=== PATIENT | female | born 1990 | race African-American/Black ===

== ENCOUNTER 2019-08-15 19:07 | Emergency (ER) | payer SELFPAY ==
[2019-08-15 19:32] VITALS: BP 110/69; PULSE 82; RESP 19; TEMP 36.6; O2SAT 100
--- NOTE | 2019-08-15 21:04 | PC.NURSE ---
Called at this time in waiting room, no answer
--- NOTE | 2019-08-15 21:10 | PC.NURSE ---
PATIENT CALLED AT THIS TIME, NO ANSWER .
== END 2019-08-15 21:10 | disposition left against medical advice (07) ==
LOC: ANHED 21:12
DX: Z53.21 Procedure and treatment not carried out due to patient leaving prior to being seen by health care provider (principal)
CPT/HCPCS: 99199

== ENCOUNTER 2021-11-04 10:17 | Emergency (ER) | payer OTHER, SELFPAY ==
[2021-11-04 10:28] VITALS: BP 108/62; PULSE 93; RESP 16; TEMP 36.5; O2SAT 99
--- NOTE | 2021-11-04 10:40 | ED.URI ---
HPI - URI/Sore Throat General Chief Complaint: Upper Respiratory Infection Stated Complaint: cough/congestion Time Seen by Provider: 11/04/21 10:41 Source: patient, family, RN notes reviewed and old records reviewed Mode of arrival: ambulatory Limitations: no limitations History of Present Illness HPI Narrative: 31-year-old female presents to the [facility] with complaints of cough, congestion, body aches over the past 2 to 3 days. Has not taken anything for symptoms states that she just sleeps too much. Onset (ago): day(s) (2-3 ) Related Data Allergies Allergy/AdvReac Type Severity Reaction Status Date / Time No Known Allergies Allergy Verified 11/04/21 11:13 Review of Systems Review of Systems: All systems reviewed & are unremarkable except as noted in HPI and below Constitutional: Constitutional: Reports as per HPI, Denies chills, Reports fatigue, Denies fever(s) and Denies headache(s) Eyes: Eyes: Reports no additional eye complaints ENT: Reports as per HPI, Denies vertigo, Denies dizziness, Denies headache(s), Denies nasal congestion and Denies sore throat Cardiovascular: Cardiovascular: Reports no additional cardiovascular complaints, Denies chest pain, Denies syncope, Denies rapid heart rate and Denies dyspnea Respiratory: Respiratory: Reports as per HPI, Reports cough, Denies dyspnea and Denies wheezing Gastrointestinal: Gastrointestinal: Reports no additional gastrointestinal complaints, Denies abdominal pain, Denies diarrhea, Denies nausea and Denies vomiting Musculoskeletal: Musculoskeletal: Reports no additional musculoskeletal complaints and Denies numbness Integumentary/Breasts: Skin/Breast: Reports system reviewed and no additional complaints, except as docu Neurologic: Reports system reviewed and no additional complaints, except as documented, Denies vertigo, Denies dizziness, Denies syncope, Denies headache(s), Denies focal weakness and Denies numbness Psychiatric: Psychiatric: Reports no additional psychiatric complaints Allergic/Immunologic: Allergic/Immunologic: Reports no additional allergic/immunologic complaints and Denies wheezing PMFSH Past Medical History Medical History (Updated 11/04/21 @ 19:00 by Katheryn Salazar APRN) No significant medical problems Surgical History Surgical History No history of previous surgery Social History Social History Gender identity (if verbalized by the patient): Female Comments At the time of my signature, I reviewed and agree with the nursing past medical, surgical, social, and family history. There is no relevant family history pertinent to the patient complaint. Exam Const: General: cooperative, no acute distress, well developed, alert and ill appearing acutely (mild) Nutritional Appearance: well nourished Orientation/consciousness: patient oriented x3 Limitations: no limitations HENMT: Head: normal to inspection Ears: external ears normal, TM's normal bilaterally and EAC's normal General nose exam: Normal external nose present and Normal nares present Mouth: Yes Normal oral and palatal mucosa present Throat: posterior oropharynx normal and uvula midline Eyes: Conjunctivae: conjunctivae normal Pupils: Equal, round and reactive pupils present Neck: Neck: normal visual inspection, no lymphadenopathy and no meningeal signs Chest: Chest palpation & inspection: normal inspection of the chest Resp: Effort & Inspection: normal respiratory effort and no use of accessory muscles Auscultation: clear to auscultation bilaterally, no crackles, no rales, no rhonchi and no wheezes Cardio: Rate: regular rate Rhythm: regular rhythm Skin: General skin exam: normal color Rashes: no rashes Wounds: no wounds Neuro: General: patient oriented x3, moves all extremities, no meningeal signs and no focal motor deficits Cranial nerves: Yes Equal, round and reactive pupils present Speech: normal speech
[2021-11-04 21:31] LABS: SARS-CoV-2 RNA PCR Negative
== END 2021-11-04 11:24 | disposition home or self-care (01) ==
PROVIDERS: Emergency Provider Nurse Practitioner
DX: J40 Bronchitis, not specified as acute or chronic (principal); Z20.822 Contact with and (suspected) exposure to COVID-19
CPT/HCPCS: 87426; 87804; 99213; C9803; G0463; U0003; U0005

== ENCOUNTER 2021-12-15 14:37 | Emergency (ER) | payer OTHER, SELFPAY ==
[2021-12-15 14:50] VITALS: BP 116/71; PULSE 102; RESP 16; TEMP 36.6; O2SAT 100
--- NOTE | 2021-12-15 15:18 | ED.GENADULT ---
HPI - General Adult General Chief complaint: Head Injury Stated complaint: injury Time Seen by Provider: 12/15/21 15:21 Source: patient Mode of arrival: ambulatory Limitations: no limitations History of Present Illness HPI narrative: 31-year-old female presented for complaint of pain to right catholic after injury 2 days ago. She states while at work she struck her head on glass pane. Resulted in 2 scratches at the catholic, and endorses swelling. She denies loss of consciousness. Endorses since then intermittent dizziness/lightheadedness and head pain rating 10 out of 10. She denies associated photophobia, nausea, vomiting, vision changes. She has not taken anything for pain. Related Data Allergies Allergy/AdvReac Type Severity Reaction Status Date / Time No Known Allergies Allergy Verified 12/15/21 15:22 Review of Systems Review of Systems: CONSTITUTIONAL: Denies body aches, fever, chills, or sweats. EYES: Denies visual changes, redness, or discharge. ENT: Denies rhinorrhea, congestion, sore throat, or otalgia. CARDIOVASCULAR: Denies chest pain, palpitations, or edema. RESPIRATORY: Denies cough or dyspnea. GASTROINTESTINAL: Denies abdominal pain, nausea, vomiting, or diarrhea. GENITOURINARY: Denies dysuria or hematuria. SKIN: Denies rash, itching, or wounds. MUSCULOSKELETAL: Denies back pain, joint pain, or myalgia. NEUROLOGIC: Denies numbness, tingling, or weakness. All systems reviewed & are unremarkable except as noted in HPI and below PMFSH Past Medical History Medical History No significant medical problems Surgical History Surgical History No history of previous surgery Social History Social History Gender identity (if verbalized by the patient): Female Comments At time of signature, I have reviewed and agree with nursing past medical, surgical, social and family history unless otherwise noted. Please see nursing chart for further information. There is no relevant family history pertinent to the presenting complaint Exam Narrative: GENERAL: Well-appearing HEAD: Normocephalic, right catholic with 2 scabbed abrasions approx 3mm each, minimal swelling, tender with palpation EYES: EOMI. PERRLA No redness or drainage. Conjunctivae normal. ENT: Mucous membranes pink and moist. No rhinorrhea. TMs normal bilaterally. CHEST: Clear to auscultation. HEART: Regular rate and rhythm. SKIN: Warm, dry, no rash. NEURO: No focal deficits. Alert and oriented x3. Gait steady. PSYCH: Normal affect. Course Course Emergency Course: Patient is aware of diagnosis, understands and agrees to treatment plan. Anticipatory guidance given. Patient agrees to follow-up as directed and is aware of reasons to seek care at the emergency department. Portions of this record may have been created with voice recognition software Level of Care: Express Care Visit Vital Signs Vital signs: Vital Signs Temperature 97.9 F 12/15/21 14:50 Pulse Rate 102 H 12/15/21 14:50 Respiratory Rate 16 12/15/21 14:50 Blood Pressure 116/71 12/15/21 14:50 Pulse Oximetry 100 12/15/21 14:50 Oxygen Delivery Room Air 12/15/21 14:50 Temperature 97.9 F 12/15/21 14:50 Pulse Rate 102 H 12/15/21 14:50 Respiratory Rate 16 12/15/21 14:50 Blood Pressure 116/71 12/15/21 14:50 Pulse Oximetry 100 12/15/21 14:50 Oxygen Delivery Room Air 12/15/21 14:50 Medical Decision Making MDM Narrative Medical decision making narrative: Minimal swelling and small abrasion to right catholic. Advised supportive measures and signs/symptoms to go to the ER. Pt is appropriate for outpt treatment and f/u. Differential Diagnosis Differential Diagnosis: headache, head injury, abrasion, laceration Vital Signs Vital Signs: Vital Signs Temperature 97.9 F 0
[2021-12-15] MEDS: IBUPROFEN 400 MG TABLET 800 MG PO (15:39)
== END 2021-12-15 16:00 | disposition home or self-care (01) ==
PROVIDERS: Emergency Provider Nurse Practitioner Family
DX: S00.81XA Abrasion of other part of head, initial encounter (principal); W22.8XXA Striking against or struck by other objects, initial encounter; Y99.0 Civilian activity done for income or pay; R51.9 Headache, unspecified
CPT/HCPCS: 99213; A9270; G0463

== ENCOUNTER 2022-10-08 16:22 | Outpatient (CLI) | payer OTHER, SELFPAY ==
--- NOTE | ~2022-10-08 | XR_ITS ---
Left Hand Technique: PA, oblique, and lateral views were obtained. Clinical History: Injury Findings: No acute fracture or dislocation is seen. Osseous alignment is anatomic. Joint spaces are p reserved. Soft tissues are unremarkable. Impression: Unremarkable left hand. Reviewed, dictated and finalized at location M. Impression: Unremarkable left hand.
== END 2022-10-08 16:23 | disposition home or self-care (01) ==
PROVIDERS: PCP Physician Assistant; Visit Provider Physician Assistant
DX: S69.92XA Unspecified injury of left wrist, hand and finger(s), initial encounter (principal); X58.XXXA Exposure to other specified factors, initial encounter
CPT/HCPCS: 73130

== ENCOUNTER 2022-11-04 06:39 | Outpatient (CLI) | payer OTHER, SELFPAY ==
--- NOTE | ~2022-11-04 | MR_ITS ---
MRI of the left hand CLINICAL HISTORY: Injury TECHNIQUE: Coronal T1-weighted and T2 fat-sat images, sagittal T1-weighted and T2 fat-sat images, and axial T1-weighted, T2 fat-sat, and T1 fat-sat images were performed. FINDINGS: Bone marrow signals are unremarkable. There is no fracture, bone marrow edema, paracentral direction. No evidence for osteitis. No joint effusion. Collateral ligaments throughout the hand appe ar intact. No evidence for arthropathy. Flexor and extensor tendons are intact. Visualized musculature unremarkable. No soft tissue mass or f luid collection identified. IMPRESSION: Unremarkable exam. Reviewed, dictated and finalized at location M. IMPRESSION: Unremarkable exam.
== END 2022-11-04 06:40 | disposition home or self-care (01) ==
PROVIDERS: PCP Physician Assistant; Visit Provider Physician Assistant
DX: S69.92XA Unspecified injury of left wrist, hand and finger(s), initial encounter (principal); X58.XXXA Exposure to other specified factors, initial encounter
CPT/HCPCS: 73218

== ENCOUNTER 2023-01-20 09:30 | Outpatient (RCR) | payer OTHER, SELFPAY ==
--- NOTE | 2022-11-06 10:15 | OTOPEVAL1 ---
Assessment and note entered by PEDRO Zepeda/Sherri, CHT Evaluation Information Assessment Status Evaluation Diagnosis Pain in left hand Onset 10/04/22 Subjective Information Patient works at [employer]. She reports that while at work she was pulling a stocking cart through a doorway when her hand got smashed between the cart and a door frame. She is pointing to the dorsum of her hand, on the radial side, as the site of her pain. MRI and x-rays were negative. She is right hand dominant. She is reporting persistent pain and numbness. She is woken up in the middle of the night from this. She has only been able to use the left hand for light tasks otherwise she has been using her right hand for everything or having her family help. Patient comes in today with her arm adducted at her side with her shoulder elevated. She holds her elbow in flexion with her hand at her abdomen. She reports she has been in this protective position since the accident due to the pain and it 's hard for her to relax. Reported Pain Level Pain Score 9: Self Report Assessment OT Clinical Summary Patient referred to outpatient hand therapy ~5 weeks following a injury to her left hand when her hand got caught between a heavy cart at work and a door frame. She has signs and symptoms of radial nerve irritation. She has gross tightness from holding her arm in a protective position for a month. Skilled OT indicated to facilitate reduced pain, improved flexibility and strength, and to promote return to functional use of the left UE. Plan of Care Interventions Therapeutic Exercise,Manual Therapy,Neuro Re- education,Therapeutic Activities,Hot Pack/Cold Pack,Paraffin OT Services Indicated Yes These treatments will address the objective and functional deficits as defined above. The patient will be advanced safely and appropriately in order for the patient to progress towards his/her prior level of function. Additional exercises will be introduced and as well as a comprehensive home exercise program upon discharge, if needed, ?to ensure carryover of functional gains achieved in the clinic. This treatment plan has been reviewed and agreement upon by the patient.
--- NOTE | 2022-11-06 10:15 | OPREHPOC ---
Outpatient Therapy Plan of Care This is a Multidisciplinary Plan of Care that may contain components documented by all disciplines (PT, OT, and ST.) OT Problem 1 OT Problem #1 Knowledge Deficit OT Goal 1 Goal 1. Patient to be independent with all instructed materials. Target Visit 4 OT Problem 2 OT Problem #2 Pain OT Goal 1 Goal 1. Patient to report reduced pain with left UE active ROM to less than 5/10. 2. Patient to be independent with non-medication pain management techniques: - ROM - rest - heat/ice - positioning Target Visit 4 OT Problem 3 OT Problem #3 Impaired Strength OT Goal 1 Goal 1. 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 2. Patient to be able to complete left elbow, forearm, and wrist strengthening with at least a 1 lb. free weight x10 reps. Target Visit 4
--- NOTE | 2022-11-12 16:00 | PCOTNOTE ---
Patient called & cancelled scheduled appointment this date due to not being able to make it.
--- NOTE | 2022-11-20 14:45 | PCOTNOTE ---
Patient did not show up for scheduled appointment this date. Called patient and left voicemail reminding her of her next appt.
--- NOTE | 2022-12-04 15:18 | OTOPPROG ---
Assessment and note entered by PEDRO Zepeda/Sherri, CHT Evaluation Information Assessment Status Progress Diagnosis Pain in left hand Onset 10/04/22 Subjective Information Patient reporting improvements in the left UE since beginning therapy 4 weeks ago, reporting improved flexibility and ease of movement. She states she is now able to use the arm for light tasks around the house. She states she is still limited in heavy lifting, reports sudden jolts of pain when she tries to lift heavier items. Continues to report persistent pain and numbness, but overall pain is reduced. She is still waking up in the middle of the night from the pain. She comes in today with her arm holding her phone and moving it freely. At the start of care she was in such pain that she held in her arm adducted and internally rotated at her side. She is able to move through full ROM and is less guarded with motion. She was able to tolerate manual muscle testing in the left shoulder and elbow, but needed to stop. Unable to test wrist. She was able to squeeze the dynamometer today 5 lbs. She was unable to be tested with the dynamometer at our first appointment. Assessment OT Clinical Summary Patient referred to outpatient hand therapy following a injury to her left hand when her hand got caught between a heavy cart at work and a door frame. She has signs and symptoms of radial nerve irritation. Since beginning therapy she has made progress. She is moving through motion against gravity without being so guarded. She is having slightly less pain, but does continue to report high amounts of pain at rest and with arm use. We have attempted to progress to some light strengthening (1 lb. only) and she is not tolerating >10 reps with bicep curls, >4 reps with forearm rotation, and >2 reps with wrist extension. Continued skilled OT indicated to progress functional therapeutic exercises, progress her HEP, treat pain symptoms, and educate on body mechanics and lifting to help reduce arm strain and further nerve irritation. Plan of Care Interventions Therapeutic Exercise,Manual Therapy,Neuro Re- education,Therapeutic Activities,Hot Pack/Cold Pack,Paraffin OT Services Indicated Yes
--- NOTE | 2023-01-01 14:12 | OTOPPROG ---
Assessment and note entered by PEDRO Zepeda/Sherri, CHT Evaluation Information Diagnosis Pain in left hand Onset 10/04/22 Subjective Information Patient reporting improvements in the left UE since beginning therapy 8 weeks ago, reporting improved flexibility and ease of movement. 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 She has been trying to use 2 lb. and 5 lb. free weight for her exercises, but is unable to complete a full 10 reps yet due to pain. She reports reduced electric jolts of pain. She states she is no longer waking up in the middle of the night due to pain. Today she was able to tolerate muscle testing to the entire UE. She was unable to tolerate muscle testing at the wrist last month. 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 She is also now able to tolerate more weight UE strengthening: elbow/ forearm with 2 lbs. and still only able to use 1 lb. on the wrist. The wrist and hand continues to be the area with the most pain and weakness. She continues to have (+) radial nerve tension testing. She reports she sees an neurologist next week and is getting an EMG. Assessment OT Clinical Summary Patient referred to outpatient hand therapy following a injury to her left hand when her hand got caught between a heavy cart at work and a door frame. She has signs and symptoms of radial nerve irritation. Since beginning therapy she has made progress. She is able to tolerate lifting 1-2 lb. free weights and is having less pain with arm use. She continues to have (+) radial nerve tension test and paresthesias in the radial nerve distribution of the left hand. She is back to work on light duty. Continued skilled OT indicated to progress functional therapeutic exercises, progress her HEP, treat pain symptoms, and educate on body mechanics and lifting to help reduce arm strain and further nerve irritation. Plan of Care Interventions Therapeutic Exercise,Manual Therapy,Neuro Re- education,Therapeutic Activities,Hot Pack/Cold Pack,Paraffin OT Services Indicated Yes Treatment Frequency and 1x/week for 4 weeks Duration These treatments will address the objective and functional deficits as defined above. The vic
--- NOTE | 2023-01-01 14:13 | OPREHPOC ---
Outpatient Therapy Plan of Care This is a Multidisciplinary Plan of Care that may contain components documented by all disciplines (PT, OT, and ST.) OT Problem 1 OT Problem #1 Knowledge Deficit OT Goal 1 Goal 1. Patient to be independent with all instructed materials. --OT POC UPDATE 12/04/22-- 1. Met, continue as HEP is progressed --OT POC UPDATE 01/01/23-- 1. Met, continue as HEP is progressed Target Visit 12 Progress Met OT Problem 2 OT Problem #2 Pain OT Goal 1 Goal 1. Patient to report reduced pain with left UE active ROM to less than 5/10. 2. Patient to be independent with non-medication pain management techniques: - ROM - rest - heat/ice - positioning --OT POC UPDATE 12/04/22-- 1. Not met 2. Met --OT POC UPDATE 01/01/23-- 1. Progressing, continue 2. Met Target Visit 12 Progress Partially Met OT Problem 3 OT Problem #3 Impaired Strength OT Goal 1 Goal 1. Patient to be able to complete left port engineer strengthening with at least yellow theraputty x5 minutes. 2. Patient to be able to complete left elbow, forearm, and wrist strengthening with at least a 1 lb. free weight x10 reps. --OT POC UPDATE 12/04/22-- 1. Progressing, continue 2. Progressing, continue --OT POC UPDATE 01/01/23-- 1. Progressing, continue 2. Progressing, continue 3. New goal: Patient to increase left port engineer strength to 20 lbs. Target Visit 12 Progress Not Met
--- NOTE | 2023-01-20 09:42 | OTOPDC ---
Assessment and note entered by Doug Adler, PEDRO/Sherri, CHT Evaluation Information Assessment Status Discharge Diagnosis Pain in left hand Onset 10/04/22 Subjective Information Patient reporting improvements in the left UE. She states that sometimes there is little to no pain. Just feeling some residual weakness. She reports she no longer wakes up in the middle of the night with pain. States she is using her arm at work, but the arm gets tired easy. She states her nerve conduction test was normal. Today she was able to tolerate muscle testing to the entire UE. 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 She is also now able to tolerate more weight UE strengthening. Reported Pain Level Pain Score 3: Self Report Assessment OT Clinical Summary Patient presents for her final therapy re- evaluation. She has made steady progress toward returning to functional use of the left UE. She presents today less guarded and intentionally using the arm. Her strength is improving and measuring WFL. She is back at work at reports her arm gets tired, but she is able to complete her work tasks. No further skilled OT indicated at this time. D/C with patient independent with HEP. Plan of Care OT Services Indicated No
== END 2023-01-20 11:58 | disposition home or self-care (01) ==
LOC: ANHOT 09:30
PROVIDERS: PCP Physician Assistant; Visit Provider Physician Assistant
DX: M79.642 Pain in left hand (principal)
CPT/HCPCS: 97018; 97110; 97166; 99199

== ENCOUNTER 2023-05-12 13:14 | Emergency (ER) | payer OTHER, SELFPAY ==
[2023-05-12 13:21] VITALS: BP 112/95; PULSE 82; RESP 24; TEMP 36.2; O2SAT 100
== END 2023-05-12 13:53 | disposition left against medical advice (07) ==
LOC: ANHED 13:49
PROVIDERS: PCP Physician Assistant
DX: R06.02 Shortness of breath (principal)
CPT/HCPCS: 99199

== ENCOUNTER 2023-08-08 15:10 | Emergency (ER) | payer OTHER, SELFPAY ==
[2023-08-08 15:17] VITALS: BP 123/71; PULSE 80; RESP 16; TEMP 36.3; O2SAT 100
--- NOTE | 2023-08-08 15:22 | ED.GENADULT ---
HPI - General Adult General Chief complaint: Nausea/Vomiting/Diarrhea Stated complaint: Nausea Source: patient, RN notes reviewed and old records reviewed Mode of arrival: ambulatory Limitations: no limitations History of Present Illness HPI narrative: 32-year-old female presents to [facility] with complaints nausea vomiting x1 this a.m. after drinking a protein shake that June 09. Patient states only vomited once but is still nauseated. Patient also complaining burning in throat and headache. Related Data Home Medications Medication Instructions Recorded Confirmed sumatriptan succinate 100 mg tablet mg PO 08/08/23 topiramate 50 mg tablet mg 08/08/23 Allergies Allergy/AdvReac Type Severity Reaction Status Date / Time No Known Allergies Allergy Verified 08/08/23 15:12 Review of Systems Constitutional: Constitutional: Reports no additional constitutional complaints, Denies body ache(s), Denies chills, Denies fatigue, Denies fever(s) and Reports headache(s) Eyes: Eyes: Reports no additional eye complaints and Denies blurry vision ENT: Reports system reviewed and no additional complaints, except as documented, Denies vertigo, Denies dizziness, Denies ear discharge, Denies otalgia, Denies facial pain, Denies headache(s), Denies nasal congestion, Denies nasal discharge, Denies sinus pain, Denies sinus pressure and Reports sore throat Cardiovascular: Cardiovascular: Reports no additional cardiovascular complaints, Denies chest pain, Denies chest pain at rest, Denies rapid heart rate and Denies dyspnea Respiratory: Respiratory: Reports no additional respiratory complaints, Denies chest congestion, Denies cough, Denies pain on inspiration, Denies pain with cough and Denies dyspnea Gastrointestinal: Gastrointestinal: Denies abdominal pain, Denies diarrhea, Reports nausea and Reports vomiting Integumentary/Breasts: Skin/Breast: Denies rash Neurologic: Reports system reviewed and no additional complaints, except as documented, Denies vertigo, Denies dizziness and Denies headache(s) Endocrine: Endocrine: Denies fatigue PMF Past Medical History Medical History No significant medical problems Surgical History Surgical History No history of previous surgery Social History Social History Gender identity (if verbalized by the patient): Female Comments At the time of my signature, I reviewed and agree with the nursing past medical, surgical, social, and family history. There is no relevant family history pertinent to the patient complaint. Exam Const: General: cooperative, healthy appearing, no acute distress and well nourished Nutritional Appearance: well nourished Orientation/consciousness: patient oriented x3 Limitations: no limitations HENMT: Head: normal to inspection and normocephalic Ears: external ears normal, TM's normal bilaterally, EAC's normal and mastoids normal Face/Nose/Sinus: normal facial exam Face and sinus: normal facial exam Mouth: Yes Normal oral and palatal mucosa present, Yes oropharynx normal and Yes moist mucous membranes Throat: tonsils normal, uvula midline, normal tonsils, no peritonsillar masses, posterior oropharynx abnormal erythema and no uvular edema Eyes: General: appearance normal, both eyes and all related structures Sclera: sclerae normal Pupils: Equal, round and reactive pupils present Resp: Effort & Inspection: normal respiratory effort, able to speak in complete sentences, no audible wheezes, no cough, no respiratory distress and no retractions Auscultation: clear to auscultation bilaterally, no crackles, no rales, no rhonchi and no wheezes Cardio: Rate: regular rate Rhythm: regular rhythm GI: GI Palp: No abdominal tenderness, Yes Soft to palpation, No Firmness to palpation present (GI), N
[2023-08-08] MEDS: ONDANSETRON HCL ODT 4 MG TABLET PO (15:29)
== END 2023-08-08 15:51 | disposition home or self-care (01) ==
PROVIDERS: Emergency Provider Registered Nurse; PCP Physician Assistant
DX: A05.9 Bacterial foodborne intoxication, unspecified (principal); Z79.899 Other long term (current) drug therapy
CPT/HCPCS: 87081; 87880; 99213; A9270; G0463

== ENCOUNTER 2024-04-24 09:22 | Emergency (ER) | payer OTHER, SELFPAY ==
[2024-04-24 09:28] VITALS: BP 104/67; PULSE 79; RESP 16; TEMP 36.8; O2SAT 100
--- NOTE | 2024-04-24 10:05 | ED.GENADULT ---
HPI - General Adult General Chief complaint: Back Pain/Injury Stated complaint: Neck/Back Pain Time Seen by Provider: 04/24/24 10:07 Source: patient, RN notes reviewed and old records reviewed Mode of arrival: ambulatory Limitations: no limitations History of Present Illness HPI narrative: 33-year-old female presents to the [facility] back and neck pain. No known injury. As a prescription for Flexeril, prescribed today. Patient presents with generalized neck and back pain. Reports that she was seen at [facility] this morning, had testing done including a CT scan which she reports is negative. States that she was prescribed Flexeril, a Lidoderm patch was applied to her neck. Patient is here just for additional days off. States that they only gave her 2 days off and she wanted at least 3. 72 hour work note given to patient Related Data Home Medications Medication Instructions Recorded Confirmed cyclobenzaprine 10 mg tablet 10 mg DIRECTED 04/24/24 04/24/24 Allergies Allergy/AdvReac Type Severity Reaction Status Date / Time No Known Allergies Allergy Verified 08/08/23 15:12 Review of Systems Review of Systems: All systems reviewed & are unremarkable except as noted in HPI and below Constitutional: Constitutional: Reports no additional constitutional complaints ENT: Reports system reviewed and no additional complaints, except as documented Cardiovascular: Cardiovascular: Reports no additional cardiovascular complaints, Denies chest pain and Denies dyspnea Respiratory: Respiratory: Reports no additional respiratory complaints, Denies chest congestion, Denies cough and Denies dyspnea Gastrointestinal: Gastrointestinal: Reports no additional gastrointestinal complaints, Denies abdominal pain, Denies nausea and Denies vomiting Musculoskeletal: Musculoskeletal: Reports as per HPI Integumentary/Breasts: Skin/Breast: Reports system reviewed and no additional complaints, except as docu [facility] Past Medical History Medical History No significant medical problems Surgical History Surgical History No history of previous surgery Social History Social History Gender identity (if verbalized by the patient): Female Comments At the time of my signature, I reviewed and agree with the nursing past medical, surgical, social, and family history. There is no relevant family history pertinent to the patient complaint. Exam Const: General: cooperative, healthy appearing, comfortable, no acute distress, well developed, alert and well nourished Nutritional Appearance: well nourished and obese Orientation/consciousness: patient oriented x3 Limitations: no limitations HENMT: Head: normal to inspection Ears: hearing grossly normal bilaterally and external ears normal Face/Nose/Sinus: Normal external nose present, normal facial exam and face symmetric Face and sinus: normal facial exam and face symmetric Eyes: General: appearance normal, both eyes and all related structures Alignment and Position: alignment normal Periorbital: periorbital findings normal Neck: Neck: normal visual inspection, full ROM, no lymphadenopathy and no meningeal signs Chest: Chest palpation & inspection: normal inspection of the chest Resp: Effort & Inspection: normal respiratory effort and able to speak in complete sentences Cardio: Rate: regular rate Back/Spine/Pelvis: Back: no CVA tenderness and back tenderness (Generalized upper, and neck) Skin: General skin exam: normal color and no rashes or lesions noted Lesions: no lesions Rashes: no rashes Wounds: no wounds Neuro: General: patient oriented x3, gait normal, tone normal, moves all extremities and no meningeal signs Cognition (Neuro): normal cognition Speech: normal speech Gait exam (Neuro): Normal gait present Extrem: General: normal to inspection, full ROM, capillary refill normal and normal gait Psych: Appearance: grossly normal and well kempt Mental Status: mental status grossly normal Speech and movement: Normal speech and movement present and Clear speech present Affect: normal affect Attitude: cooperative Course Course Level of Care: Express Care Visit Vital Signs Vital signs: Vital Signs Temperature 98.3 F 04/24/24 09:28 Pulse Rate 79 04/24/24 09:28 Respiratory Rate 16 04/24/24 09:28 Blood Pressure 104/67 04/24/24 09:28 Pulse Oximetry 100 04/24/24 09:28 Oxygen Delivery Room Air 04/24/24 09:28 Temperature 98.3 F 04/24/24 09:28 Pulse Rate 79 04/24/24 09:28 Respiratory Rate 16 04/24/24 09:28 Blood Pressure 104/67 04/24/24 09:28 Pulse Oximetry 100 04/24/24 09:28 Oxygen Delivery Room Air 04/24/24 09:28 Reviewed Medical Decision Making MDM Narrative Medical decision making narrative: Patient sitting in exam room, requesting 72 hour work note. Already has medications. Denies any loss retention of bowel bladder. Denies any other symptoms. Reports a complete workup done at [facility] just prior to arrival Discharge instructions reviewed with patient, as well as provided in writing per nursing staff. The instructions also include specific and strict return/GO TO THE ER as well as f/u information. All questions have been answered, and the patient deny any further questions with discharge and discharge plan. Some parts of this dictation were generated by voice recognition software and may contain typographical and/or grammatical inaccuracies. Differential Diagnosis Differential Diagnosis: Back pain, neck pain Medical Records Medical records reviewed: Yes I reviewed the external patient's medical records. Vital Signs Vital Signs: Vital Signs Temperature 98.3 F 04/24/24 09:28 Pulse Rate 79 04/24/24 09:28 Respiratory Rate 16 04/24/24 09:28 Blood Pressure 104/67 04/24/24 09:28 Pulse Oximetry 100 04/24/24 09:28 Oxygen Delivery Room Air 04/24/24 09:28 Temperature 98.3 F 04/24/24 09:28 Pulse Rate 79 04/24/24 09:28 Respiratory Rate 16 04/24/24 09:28 Blood Pressure 104/67 04/24/24 09:28 Pulse Oximetry 100 04/24/24 09:28 Oxygen Delivery Room Air 04/24/24 09:28 Reviewed Lab Data Lab results reviewed: Yes I reviewed the patient's lab results. Labs: Reviewed Critical Care Time Critical Care Time Critical Care Time: No Discharge Plan Discharge Clinical Impression: Muscle strain Patient Disposition: Home, Self-Care Condition: Stable Instructions: Antibiotic Form, Muscle Spasm (ED) Additional Instructions: Take ibuprofen as directed to decrease inflammation and to help pain. Take the Flexeril that you are prescribed as directed. Do not drink, drive, operate machinery, or do anything dangerous while taking this medication Exercise:Combine aerobic exercise, like walking or swimming, with specific exercises to keep the muscles in your back and abdomen strong and flexible. Proper Lifting:Be sure to lift heavy items with your legs, not your back. Do not bend over to pick something up. Keep your back straight and bend at your knees. Weight:Maintain a healthy weight. Being overweight puts added stress on your lower back. Avoid Smoking:Both the smoke and the nicotine cause your spine to age faster than normal. Proper Posture:Good posture is important for avoiding future problems. A therapist can teach you how to safely stand, sit, and lift. Use warm moist heat to help with pain. Using topical such as Biofreeze, Guille-Worthington or Aspercreme can also help Follow up with Primary provider in 2-3 days, This may become a chronic condition and they will be the one to help manage your pain and order additional testing. Go to the nearest ER if you develop problems with bladder/bowel function, weakness or loss of feeling in one or both of your legs. Patient Language: Luxembourger Prescriptions: No Action cyclobenzaprine 10 mg tablet 10 mg DIRECTED Follow-up/Referrals: Pedro,CLAUDINE Ibrahim [Primary Care Provider] - 3 Days (express care follow up ) Stand Alone Forms: Work/School Release IP Time of Disposition: 10:17
== END 2024-04-24 10:30 | disposition home or self-care (01) ==
PROVIDERS: Emergency Provider Nurse Practitioner; PCP Physician Assistant
DX: S16.1XXA Strain of muscle, fascia and tendon at neck level, initial encounter (principal); X58.XXXA Exposure to other specified factors, initial encounter; S29.012A Strain of muscle and tendon of back wall of thorax, initial encounter
CPT/HCPCS: 99212; G0463

== ENCOUNTER 2025-01-03 12:33 | Emergency (ER) | payer OTHER, SELFPAY ==
[2025-01-03 12:45] VITALS: BP 114/68; PULSE 73; RESP 14; TEMP 36.2; O2SAT 100
--- NOTE | 2025-01-03 12:49 | ED_ITS ---
HPI - General Adult General Chief complaint: Unspecified Stated complaint: lymph nodes swollen Time Seen by Provider: 01/03/25 12:35 Source: patient Mode of arrival: ambulatory Limitations: no limitations History of Present Illness HPI narrative: Pt is a 34 y/o female presenting with c/o swollen lymphnodes. Reports noticing a bump to L. ear 2 days ago, tried squeezing the area but nothing came out. Denies visualizing insect on her skin prior to bump. States she has since noted tender lymphnodes infront of and behind her L. ear. Denies any constitutional sx. No tx initiated [employer]IC[employer]. No additional complaints. Related Data Allergies Allergy/AdvReac Type Severity Reaction Status Date / Time No Known Allergies Allergy Verified 01/03/25 12:35 Review of Systems Review of Systems: CONSTITUTIONAL: Denies body aches, fever, chills, or sweats. EYES: Denies visual changes, redness, or discharge. ENT: reports enlarged lymphnodes, Denies rhinorrhea, congestion, sore throat, or otalgia. CARDIOVASCULAR: Denies chest pain, palpitations, or edema. RESPIRATORY: Denies cough or dyspnea. GASTROINTESTINAL: Denies abdominal pain, nausea, vomiting, or diarrhea. GENITOURINARY: Denies dysuria or hematuria. SKIN: Reports bump to L. ear Denies rash, itching, or wounds. MUSCULOSKELETAL: Denies back pain, joint pain, or myalgia. NEUROLOGIC: Denies headache, numbness, tingling, or weakness. PSYCH: Denies depression or anxiety. All systems reviewed & are unremarkable except as noted in HPI and below PMFSH Past Medical History Medical History No significant medical problems Surgical History Surgical History No history of previous surgery Social History Social History Gender identity (if verbalized by the patient): Female Exam Narrative: GENERAL: Well-appearing, well-nourished, and in no acute distress. HEAD: Normocephalic, atraumatic. EYES: EOMI. No redness or drainage. Conjunctivae normal. ENT: Mucous membranes pink and moist. Nares clear. No rhinorrhea. TMs normal bilaterally. Throat normal. Uvula midline.Tender, mobile pre- and post auricular lymphnodes without overlying erythema. Small, Papular lesion (<0.5cm) with overlying scab formation noted to the helix of the L. ear. There is no surrounding erythema, edema-no drainage. No necrosis. NECK: Normal AROM. Supple. CHEST: No respiratory distress. HEART: Regular rate SKIN: Warm, dry, no rash. Capillary refill normal. Normal skin turgor. NEURO: No focal deficits. Alert and oriented x3. Gait steady. PSYCH: Normal affect. No signs of depression or anxiety. Course Course Level of Care: Express Care Visit Vital Signs Vital signs: Vital Signs Temperature 97.1 F L 01/03/25 12:45 Pulse Rate 73 01/03/25 12:45 Respiratory Rate 14 01/03/25 12:45 Blood Pressure 114/68 01/03/25 12:45 Pulse Oximetry 100 01/03/25 12:45 Temperature 97.1 F L 01/03/25 12:45 Pulse Rate 73 01/03/25 12:45 Respiratory Rate 14 01/03/25 12:45 Blood Pressure 114/68 01/03/25 12:45 Pulse Oximetry 100 01/03/25 12:45 Medical Decision Making Vital Signs Vital Signs: Vital Signs Temperature 97.1 F L 01/03/25 12:45 Pulse Rate 73 01/03/25 12:45 Respiratory Rate 14 01/03/25 12:45 Blood Pressure 114/68 01/03/25 12:45 Pulse Oximetry 100 01/03/25 12:45 Temperature 97.1 F L 01/03/25 12:45 Pulse Rate 73 01/03/25 12:45 Respiratory Rate 14 01/03/25 12:45 Blood Pressure 114/68 01/03/25 12:45 Pulse Oximetry 100 01/03/25 12:45 Discharge Plan Discharge Clinical Impression: Head and neck lymphadenopathy Abrasion of left ear Qualifiers: Encounter type: initial encounter Qualified Code(s): S00.412A - Abrasion of left ear, initial encounter Patient Disposition: Home Condition: Stable Instructions: Antibiotic Form, Cellulitis (ED), Lymphadenopathy (ED) Additional Instructions: Go straight to ER should your symptoms become worse or should any new symptoms develop Patient Language: Faroese Prescriptions: New amoxicillin-pot clavulanate 875-125 mg tablet 1 tablet PO Q12H Qty: 10 0RF Follow-up/Referrals: Duane,Beronica [Other] - 01/03/25 Time of Disposition: 13:19
== END 2025-01-03 13:24 | disposition home or self-care (01) ==
PROVIDERS: Emergency Provider Registered Nurse
DX: R59.0 Localized enlarged lymph nodes (principal); S00.412A Abrasion of left ear, initial encounter; X58.XXXA Exposure to other specified factors, initial encounter
CPT/HCPCS: 99213; G0463

== ENCOUNTER 2025-02-04 08:05 | Emergency (ER) | payer OTHER, SELFPAY ==
--- NOTE | 2025-02-04 08:08 | ED.FEMALEGU ---
HPI - Female Genitourinary General Chief complaint: Urogenital-Female Stated complaint: itchy/discharge in private area Time Seen by Provider: 02/04/25 08:08 Source: patient Mode of arrival: ambulatory Limitations: no limitations History of Present Illness HPI Narrative: Marilyn is a 34-year-old female patient presenting to the clinic today with complaints of vaginal itching, white clumpy cottage cheese like discharge, and burning with urination x3 days. She reports she has tried wrjt-gek-[id number] yeast medicine with mild relief however her symptoms are still presenting. Denies any fevers, chills, nausea, vomiting, back pain, or abdomen pain. Denies any concern for STIs. Last menstrual period was January 22. Related Data Allergies Allergy/AdvReac Type Severity Reaction Status Date / Time No Known Allergies Allergy Verified 01/03/25 12:35 Review of Systems Review of Systems: Pertinent positives per HPI. Patient denies any fever, chills, rash, headache, visual changes, dizziness, cough, runny nose, sore throat, shortness of breath, chest pain, palpitations, nausea, vomiting, diarrhea, constipation, abdominal pain PMFSH Past Medical History Medical History No significant medical problems Surgical History Surgical History No history of previous surgery Social History Social History Gender identity (if verbalized by the patient): Female Comments At the time of my signature, I reviewed and agree with the nursing past medical, surgical, social, and family history. There is no relevant family history pertinent to the patient complaint. Exam Narrative: General: Well-developed, well nourished, in no apparent distress Head: Normocephalic, atraumatic. Cardio: Regular rate and rhythm, s1 and s2 normal, no murmur appreciated. Resp: Clear to auscultation bilaterally, no rhonchi, rales, wheezing or rubs. Abdomen: Soft, pliable, bowel sounds present in all quadrants, non-tender to palpation, no CVAT tenderness. : Deferred Course Course Emergency Course: Portions of this record may have been created with voice recognition software. Level of Care: Express Care Visit Vital Signs Vital signs: Vital Signs Temperature 36.8 C 02/04/25 08:14 Pulse Rate 91 02/04/25 08:14 Respiratory Rate 16 02/04/25 08:14 Blood Pressure 115/64 02/04/25 08:14 Pulse Oximetry 99 02/04/25 08:14 Oxygen Delivery Room Air 02/04/25 08:14 Temperature 36.8 C 02/04/25 08:14 Pulse Rate 91 02/04/25 08:14 Respiratory Rate 16 02/04/25 08:14 Blood Pressure 115/64 02/04/25 08:14 Pulse Oximetry 99 02/04/25 08:14 Oxygen Delivery Room Air 02/04/25 08:14 Vital signs reviewed MDM - Female Genitourinary MDM Narrative Medical decision making narrative: At the time of visit patient is resting comfortably on the exam table. Patient appears to be nontoxic. Complaints of vaginal itching, white clumpy cottage cheese like discharge, and burning with urination x3 days. She reports she has tried [id number]-[id number] yeast medicine with mild relief however her symptoms are still presenting. Denies any fevers, chills, nausea, vomiting, back pain, or abdomen pain. Denies any concern for STIs. Last menstrual period was January 22. On exam patient has no CVAT tenderness, bowel sounds are present, no abdomen or suprapubic tenderness. UA dip ordered Labs: Urinalysis shows 1+ leukocytes. I suspect this may be a contaminant. Urine culture was ordered. Plan: I suspect patient has a vaginal yeast infection. Prescription for Diflucan was sent to the pharmacy. We will send urine for culture if this comes back positive we will call the patient and treat her appropriately. Supportive measures were discussed with the patient and they voiced understanding discharge instructions and agrees to treatment plan. Return precautions reviewed Differential Diagnosis Differential diagnosis: Likely urinary tract infection, bacterial vaginosis, vaginitis, cystitis and other (Vaginal yeast infection) Discharge Plan Discharge Clinical Impression: Vaginal yeast infection Patient Disposition: Home Condition: Stable Instructions: Antibiotic Form, Yeast Infection (ED) Additional Instructions: Urine shows 1+ leukocyte but this may be contaminate-we will send urine for culture if this comes back positive we will contact you and place you on antibiotics at that time. Increase fluids and stay well hydrated Take Diflucan as prescribed May apply tucks pads or cool compress to the area to help alleviate pain May take Benadryl as needed to help alleviate itching Follow-up with your PCP/OBGYN in 2-3 days if symptoms persist Patient Language: Chadian Prescriptions: New fluconazole 150 mg tablet 150 mg PO ONCE Qty: 2 0RF Rx Instructions: as a single dose. May repeat in 72 hours if needed. Follow-up/Referrals: UNKNOWN,DOCTOR [Non-Staff] Time of Disposition: 08:30 Quality NIHSS Nursing Documentation ED NIHSS nursing documentation: reviewed/agree
[2025-02-04 08:14] VITALS: BP 115/64; PULSE 91; RESP 16; TEMP 36.8; O2SAT 99
[2025-02-04 08:35] LABS: EDUAAPPEAR Clear; EDUABILI Negative (Negative); EDUABLOOD Negative (Negative); EDUACOLOR1 Yellow; EDUAGLUCOSE Negative (Negative); EDUAKETONE Negative (Negative); EDUALEUKO 1+ (Negative); EDUANITRATE Negative (Negative); EDUAPH 5.5; EDUAPROTEIN Negative (Negative); EDUASPGRAVITY 1.015; EDUAUROBILI 0.2
== END 2025-02-04 08:44 | disposition home or self-care (01) ==
PROVIDERS: Emergency Provider Nurse Practitioner Family
DX: B37.31 Acute candidiasis of vulva and vagina (principal); N39.0 Urinary tract infection, site not specified
CPT/HCPCS: 81003; 87086; 87186; 99213; G0463

== ENCOUNTER 2025-03-19 16:32 | Emergency (ER) | payer OTHER, SELFPAY ==
--- NOTE | 2025-03-19 16:33 | ED_ITS ---
HPI - URI/Sore Throat General Chief Complaint: Upper Respiratory Infection Stated Complaint: Sinus Time Seen by Provider: 03/19/25 16:33 Source: patient Mode of arrival: ambulatory Limitations: no limitations History of Present Illness HPI Narrative: Patient is a 34-year-old female that presents with headache, cough, nasal drainage and loss of taste or smell since last night. Denies any fever, chills, nausea, vomiting, diarrhea. Related Data Home Medications ?Medication ?Instructions ?Recorded ?Confirmed ?Last Taken ?Type hydroxyzine HCl 25 mg tablet mg 03/19/25 Unknown Hist ory sertraline 50 mg tablet mg 03/19/25 Unknown History Allergies Allergy/AdvReac Type Severity Reaction Status Date / Time No Known Allergies Allergy Verified 03/19/25 16:53 Review of Systems Review of Systems: All systems reviewed & are unremarkable except as noted in HPI and below Constitutional: Constitutional: Denies chills, Denies fatigue, Denies fever(s), Reports headache(s), Denies malaise and Denies weakness Eyes: Eyes: Denies blurry vision, Denies itchy eyes and Denies loss of vision ENT: Denies otalgia, Reports headache(s), Reports nasal congestion, Denies sinus pain and Denies sore throat Cardiovascular: Cardiovascular: Denies chest pain, Denies irregular heart rhythm and Denies dyspnea Respiratory: Respiratory: Reports cough and Denies dyspnea Gastrointestinal: Gastrointestinal: Denies abdominal pain, Denies diarrhea, Denies nausea and Denies vomiting Musculoskeletal: Musculoskeletal: Denies back pain, Denies myalgias and Denies arthralgias Integumentary/Breasts: Skin/Breast: Denies pruritus and Denies rash Neurologic: Reports headache(s), Denies loss of vision and Denies weakness Psychiatric: Psychiatric: Reports no additional psychiatric complaints Endocrine: Endocrine: Denies fatigue Allergic/Immunologic: Allergic/Immunologic: Denies itchy eyes PMFSH Past Medical History Medical History No significant medical problems Surgical History Surgical History No history of previous surgery Social History Social History Gender identity (if verbalized by the patient): Female Comments At time of signature, agree with nursing past medical, surgical, social and fam humphrey history. There is no relevant family history pertinent to the presenting complaint. Exam Const: General: cooperative, healthy appearing, comfortable, no acute distress and well nourished Nutritional Appearance: well nourished Orientation/consciousness: patient oriented x3 Limitations: no limitations HENMT: Head: normal to inspection, normocephalic and atraumatic Ears: hearing grossly normal bilaterally, external ears normal, TM's normal bilaterally, EAC's normal and no periauricular adenopathy Face/Nose/Sinus: Normal external nose present, Abnormal mucous membranes and turbinates present erythematous bilateral and diffuse, normal facial exam, sinuses nontender and face symmetric Face and sinus: normal facial exam, sinuses nontender and face symmetric Mouth: Yes Normal oral and palatal mucosa present, Yes lip normal, Yes tongue normal, Yes Normal salivary glands and ducts present, Yes oropharynx normal and Yes moist mucous membranes Teeth and gingiva: dentition normal Throat: posterior oropharynx normal, tonsils normal and uvula midline Eyes: General: appearance normal, both eyes and all related structures Ali gnment and Position: alignment normal and position normal Periorbital: periorbital findings normal Eyelids: eyelids normal Pupils: Equal, round and reactive pupils present Neck: Neck: normal visual inspection, full ROM, no lymphadenopathy and supple Chest: Chest palpation & inspection: normal inspection of the chest and normal palpation of entire chest wall Resp: Effort & Inspection: normal respiratory effort and able to speak in complete sentences Auscultation: clear to auscultation bilaterally, no crackles, no rales, no rhonchi and no wheezes Cardio: Rate: regular rate Rhythm: regular rhythm Heart sounds: S1 normal heart sound present and S2 normal heart sound present GI: Inspection: normal to inspection Skin: General skin exam: normal color and no rashes or lesions noted Neuro: General: patient oriented x3 and moves all extremities Cranial nerves: Yes Equal, round and reactive pupils present Speech: normal speech Gait exam (Neuro): Normal gait present Extrem: General: normal to inspection, full ROM and no edema Psych: Appearance: grossly normal and well kempt Mental Status: mental status grossly normal Speech and movement: Normal speech and movement present Affect: normal affect Attitude: cooperative Thought process: Normal thought process present Course Course Emergency Course: Discharge instructions reviewed with patient, as well as provided in writing per nursing staff. The instructions also include specific and strict return/GO TO THE ER as well as f/u information. All questions have been answered, and the patient deny any further questions with discharge and discharge plan. Portions of this record may have been created with voice recognition software Level of Care: Express Care Visit Vital Signs Vital signs: Vital Signs Temperature 36.7 C 03/19/25 16:46 Pulse Rate 84 03/19/25 16:46 Respiratory Rate 20 03/19/25 16:46 Blood Pressure 125/72 03/19/25 16:46 Pulse Oximetry 100 03/19/25 16:46 Oxygen Delivery Room Air 03/19/25 16:46 Temperature 36.7 C 03/19/25 16:46 Pulse Rate 84 03/19/25 16:46 Respiratory Rate 20 03/19/25 16:46 Blood Pressure 125/72 03/19/25 16:46 Pulse Oximetry 100 03/19/25 16:46 Oxygen Delivery Room Air 03/19/25 16:46 Reviewed MDM - URI/Sore Throat MDM Narrative Medical decision making narrative: Pt well hydrated appearing, in no respiratory distress, hemodynamically stable. Recommend supportive care. The patient is stable at time of discharge the clinical impression was discussed and the patient was given the opportunity to ask questions, which were addressed as completely as possible given the information available at present. Anticipatory guidance and return to care precautions were discussed and the importance of primary care follow-up was stressed and encouraged. The patient voiced understanding of the plan, indications to return, and the need for follow-up. Exam findings show no acute concerns or changes Patient is appropriate for outpatient treatment and follow-up. Differential diagnosis considered: Avila virus, strep pharyngitis, allergic rhinitis, upper respiratory tract infection, sinusitis, rhinosinusitis, nasopharyngitis. viral pharyngitis, otitis media, otitis externa, otitis effusion, foreign body, cerumen impaction, viral syndrome, and influenza.? Medical Records Attestation: I reviewed the patient's medical records. Lab Data Attestation: I reviewed the patient's lab results. Labs: Lab Results 03/19/25 Range/Units 16:43 POC Influenza A Ag Positive (Negative) POC Influenza B Ag Negative (Negative) POC SARS CoV-2 Ag Negative (Negative) Discharge Plan Discharge Clinical Impression: Influenza Patient Disposition: Home Condition: Stable Instructions: Influenza (ED) Additional Instructions: Were positive for influenza A. Your Covid is negative Your symptoms are due to a viral illness, which is not treated with antibiotics. Viral symptoms can be present for up to a few weeks. -For fever/pain, you may take: Tylenol 650-1000mg by mouth every 4-6 hours. Do not exceed 4000mg in 24 hours. Advil (Ibuprofen) 600 mg by mouth every 6 hours. Do not exceed 2400mg in 24 hours. 8 AM: Tylenol 11 AM: Ibuprofen 2 PM: Tylenol 5 PM: Ibuprofen 8 PM: Tylenol 11 PM: Ibuprofen 2 AM: Tylenol 5 AM: Ibuprofen -Antihistamine medication such as Benadryl/Zyrtec at night and Claritin/Maria during the day can help improve symptoms. -Use Flonase twice a day for 5 days then daily to help reduce the inflammation and dry up your sinuses. -You can also use Sudafed behind the pharmacy counter(12 or 24 hour). Be sure to drink plenty of water with these medications at least 8 ounces with every dose and it is important to drink 8 to 10 glasses of water per day. Water is a natural decongestant -Eat and drink things that are easy to swallow, like tea or soup, or popsicles. -Oral rinses such as: Salt water gargles and/or may use topical anesthetic (eg. Chloraseptic spray) or lozenges to relieve dryness or throat pain). -Frequent hand washing or hand jewel blocker and sawyer is one of the best ways to prevent spread of infection. -Using a vaporizer or humidifier at night will also help thin secretions and help with coughing up phlegm. -Follow up with primary care provider in 3-5 days if condition is not improving - For new or worsening symptoms go directly to the nearest ER Patient Language: [place]olan Prescriptions: New promethazine-DM 6.25-15 mg/5 mL syrup 5 ml PO Q4-6H PRN (Reason: cough) Qty: 118 0RF fluticasone propionate [Flonase Allergy Relief] 50 mcg/actuation spray,suspension 1 spray intranasal DAILY Qty: 16 0RF Rx Instructions: administer into each nostril No Action hydroxyzine HCl 25 mg tablet sertraline 50 mg tablet Follow-up/Referrals: Yasmany Vasquez MD [Physician, Family Practice] - 3 Days Stand Alone Forms: Work/School Release IP Time of Disposition: 17:29
[2025-03-19 16:46] VITALS: BP 125/72; PULSE 84; RESP 20; TEMP 36.7; O2SAT 100
[2025-03-19 17:03] LABS: EDCOVIDSCREEN Negative (Negative); EDINFLUASCREEN Positive (Negative); EDINFLUBSCREEN Negative (Negative)
== END 2025-03-19 17:39 | disposition home or self-care (01) ==
PROVIDERS: Emergency Provider Nurse Practitioner Family
DX: J10.1 Influenza due to other identified influenza virus with other respiratory manifestations (principal); Z20.822 Contact with and (suspected) exposure to COVID-19
CPT/HCPCS: 87426; 87804; 99213; G0463